=== PATIENT | female | born 1955 | race Caucasian/White ===

== ENCOUNTER 2017-01-19 06:43 | Day surgery (SDC) | payer OTHER ==
[~2017-01-19] VITALS: Ht 144.8 cm; Wt 80.7 kg
[2017-01-19 07:24] VITALS: Ht 144.8 cm; Wt 80.7 kg
[2017-01-19] MEDS ORDERED: METO75TA PO (07:33)
[2017-01-19] MEDS ORDERED: ASPI81TA3 PO (07:33)
[2017-01-19] MEDS ORDERED: VIT D (07:33)
[2017-01-19] MEDS ORDERED: AMLO-147 PO (07:33)
[2017-01-19] MEDS ORDERED: HYD25 PO (07:33)
[2017-01-19] MEDS ORDERED: ATOR40TA68 PO (07:33)
[2017-01-19 07:56] VITALS: BP 167/78; PULSE 75; RESP 16
[2017-01-19] MEDS ORDERED: MIDAZOLAM 1 MG/ML 2 ML INJ ONE ×2 (08:31→08:32)
[2017-01-19] MEDS ORDERED: FENTAnyl 50 MCG/ML VIAL ONE (08:32)
[2017-01-19 08:58] VITALS: BP 114/62; PULSE 68; RESP 16
--- NOTE | 2017-01-19 18:47 | GILP ---
DATE OF PROCEDURE: 01/19/2017 PROCEDURE: Screening colonoscopy to rule out colon polyps. POSTOPERATIVE DIAGNOSES: 1. 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 2. Minimal external hemorrhoids. DESCRIPTION OF PROCEDURE: After the informed written consent was obtained, the patient was asked to lie on the left lateral side. A total of 3 mg Versed and 50 mcg of fentanyl was given as intraveno us anesthesia. When the patient became somnolent, the Olympus video upper colonoscope was introduced into the rectu m, and scope was advanced all the way to the cecum. The entire colon appeared perfectly normal. Sm all 2-mm isolated AVM noted in the mid descending colon. On the way out, retroflexion was performed where minimal external hemorrhoids were noted, and the procedure was terminated. PLAN: Recommend repeat colonoscopy in 10 years. Dictated By: SANDRINE ADORNO/ANGELA Conf#: [id number] DID#: [id number] CC: Sully Thomas;*End*
== END 2017-01-19 10:04 | disposition home or self-care (01) ==
LOC: GIL 06:43
PROVIDERS: ATTEND Internal Medicine Gastroenterology
DX: Z12.11 Encounter for screening for malignant neoplasm of colon (principal); K64.4 Residual hemorrhoidal skin tags; I10 Essential (primary) hypertension
CPT/HCPCS: 45378; J2250; J3010